=== PATIENT | male | born 1970 ===

== ENCOUNTER 2019-12-11 18:21 | Emergency (ER) | payer MEDICAID ==
[~2019-12-11] VITALS: Ht 172.7 cm; Wt 72.6 kg
[2019-12-11 18:22] VITALS: BP 130/88
--- NOTE | 2019-12-11 18:31 | Emergency Room Report ---
History of Present Illness General Chief Complaint: Chest Pain Source: Patient Present Illness HPI Disclaimer: Please note that this report is being documented using DRAGON technology. This can lead to erroneous entry secondary to incorrect interpretation by the dictating instrument. HPI: This a 49 male presenting from [facility] [place] for evaluation of chest pain. The patient arrives by EMS. He states that 2 hours ago he smoked 3 or 4 cigarettes after which she developed palpitations and then a generalized discomfort at the base of his neck and upper chest. Does not radiate. Denies shortness of breath, diaphoresis, syncope, near syncope, back or shoulder pain. Reports that he has had similar experiences after smoking cigarettes but not as severe. He is trying to quit now and limiting his cigarette use. Denies drug or alcohol use. Denies prior history of cardiac disease, coagulopathies. He has a history of asthma but denies any wheezing, cough, sputum production. He tested negative for COVID-19 earlier today. PMH: Asthma, schizophrenia PSH: Reviewed Allergies: Denied Social Hx: Daily tobacco use, denies alcohol or drug abuse Allergies: Coded Allergies: No Known Allergies (Unverified , 12/11/19) COVID-19 Screening Contact w/high risk pt: No Recent Travel to affected area: No Experienced COVID-19 symptoms?: No COVID-19 Testing performed RESEARCH AND DEVELOPMENT RESEARCHER: Yes - 12/11/19 COVID-19 Screening: Negative COVID-19 COVID-19 Testing Source: PATCH SETTER Nursing Documentation-PMH Past Medical History: No History, Except For History Of Psychiatric Problem: Yes - Schizophrenia. Review of Systems All Other Systems: negative except mentioned in HPI Physical Exam Vital Signs Date Time Temp Pulse Resp B/P (MAP) Pulse Ox O2 Delivery O2 Flow Rate FiO2 12/11/19 18:16 98.2 93 16 155/94 (114) 98 Room Air General: Awake and alert, no acute distress, mildly anxious appearing HEENT: NC/AT. EOMI. Cardiovascular: RRR. S1 and S2 normal. No murmur appreciated Resp: Normal work of breathing. No cough, wheezing or crackles appreciated Skin: Intact. No abrasions, laceration or rash over the exposed skin MSK: Normal tone and bulk. Moving all extremities. No obvious deformity. Neuro: Awake and alert. Mentating appropriately. Medical Decision Making Diagnostic Impression: Primary Impression: Chest pain ER Course This a 49-year-old male presenting for evaluation of chest pain after smoking cigarettes 2 hours ago. Differential includes but is not limited to anxiety, arrhythmia, esophageal spasm, musculoskeletal chest pain, palpitations, ACS, PE , GERD to name a few. He is well-appearing arrives stable vital signs. EKG shows sinus rhythm without ischemic changes. Chest x-ray unremarkable. Labs are returned largely within normal limits with negative d-dimer and negative troponin. Patient is chest pain-free and resting comfortably. Urinalysis showed 1+ leukocyte esterase, 5-10 white cells but few bacteria with moderate epithelial cells. May be contaminated sample given the epithelial cells and few bacteria. The patient denies any symptoms of a UTI at this time. Will await culture results. Patient be discharged to follow-up on an outpatient basis. Counseled him on smoking sensation. Discussed return precautions. He understands and agrees to treatment plan. Laboratory Tests Test 12/11/19 18:17 12/11/19 18:37 White Blood Count 9.2 K/UL (4.8-10.8) Red Blood Count 5.03 M/UL (4.70-6.10) Hemoglobin 14.9 G/DL (14.2-18.0) Hematocrit 46.3 % (42.0-52.0) Mean Corpuscular Volume 92 FL (80-99) Mean Corpuscular Hemoglobin 29.7 PG (27.0-31.0) Mean Corpuscular Hemoglobin Concent 32.3 G/DL (32.0-36.0) Red Cell Distribution Width 13.3 % (11.6-14.8) Platelet Count 351 K/UL (150-450) Mean Platelet Volume 8.6 FL (6.5-10.1) Neutrophils (%) (Auto) 64.5 % (45.0-75.0) Lymphocytes (%) (Auto) 26.5 % (20.0-45.0) Monocytes (%) (Auto) 7.4 % (1.0-10.0) Eosinophils (%) (Auto) 0.7 % (0.0-3.0) Basophils (%) (Auto) 1.0 % (0.0-2.0) Prothrombin Time 10.2 SEC (9.30-11.50) Prothrombin Time INR 0.9 (0.9-1.1) Activated Partial Thromboplast Time 31 SEC (23-33) D-Dimer 0.33 mg/L FEU (0.00-0.49) Sodium Level 140 MMOL/L (136-145) Potassium Level 3.8 MMOL/L (3.5-5.1) Chloride Level 103 MMOL/L (98-107) Carbon Dioxide Level 30 MMOL/L (21-32) Anion Gap 7 mmol/L (5-15) Blood Urea Nitrogen 14 mg/dL (7-18) Creatinine 1.0 MG/DL (0.55-1.30) Estimated Glomerular Filtration Rate > 60 mL/min (>60) Glucose Level 118 MG/DL (74-106) H Calcium Level 9.0 MG/DL (8.5-10.1) Total Bilirubin 0.2 MG/DL (0.2-1.0) Aspartate Amino Transferase (AST) 19 U/L (15-37) Alanine Aminotransferase (ALT) 40 U/L (12-78) Alkaline Phosphatase 74 U/L (46-116) Troponin I 0.007 ng/mL (0.000-0.056) Pro-B-Type Natriuretic Peptide 31 pg/mL (0-125) Total Protein 7.6 G/DL (6.4-8.2) Albumin 3.6 G/DL (3.4-5.0) Globulin 4.0 g/dL Albumin/Globulin Ratio 0.9 (1.0-2.7) L Urine Color Pale yellow Urine Appearance Clear Urine pH 6.5 (4.5-8.0) Urine Specific [place] 1.010 (1.005-1.035) Urine Protein Negative (NEGATIVE) Urine Glucose (UA) Negative (NEGATIVE) Urine Ketones Negative (NEGATIVE) Urine Blood Negative (NEGATIVE) Urine Nitrite Negative (NEGATIVE) Urine Bilirubin Negative (NEGATIVE) Urine Urobilinogen Normal MG/DL (0.0-1.0) Urine Leukocyte Esterase 1+ (NEGATIVE) H Urine RBC 0-2 /HPF (0 - 0) H Urine WBC 5-10 /HPF (0 - 0) H Urine Squamous Epithelial Cells Moderate /LPF (NONE/OCC) H Urine Bacteria Few /HPF (NONE) Urine Mucus Few /LPF (NONE/OCC) H Urine Opiates Screen Negative (NEGATIVE) Urine Barbiturates Screen Negative (NEGATIVE) Phencyclidine (PCP) Screen Negative (NEGATIVE) Urine Amphetamines Screen Negative (NEGATIVE) Urine Benzodiazepines Screen Negative (NEGATIVE) Urine Cocaine Screen Negative (NEGATIVE) Urine Marijuana (THC) Screen Negative (NEGATIVE) EKG Diagnostic Results EKG Time: 18:13 Rate: normal Rhythm: NSR ST Segments: no acute changes Other Impression Borderline tachycardia, sinus rhythm, normal axis, no ST segment changes. Rhythm Strip Diag. Results Rhythm Strip Time: 18:13 EP Interpretation: yes Rate: 97 Rhythm: NSR, no PVC's, no ectopy Last Vital Signs Date Time Temp Pulse Resp B/P (MAP) Pulse Ox O2 Delivery O2 Flow Rate FiO2 12/11/19 18:16 98.2 93 16 155/94 (114) 98 Room Air Disposition: HOME, SELF-CARE Condition: Stable Robert Sharma MD Dec 11, 2019 18:31
[2019-12-11 18:56] LABS: ANION GAP 7 mmol/L (5-15); BLOOD UREA NITROGEN 14 mg/dL (7-18); CARBON DIOXIDE 30 MMOL/L (21-32); CHLORIDE 103 MMOL/L (98-107); POTASSIUM 3.8 MMOL/L (3.5-5.1); SODIUM 140 MMOL/L (136-145)
[2019-12-11 18:58] LABS: EOSINOPHILS % (AUTO) 0.7 % (0.0-3.0); HEMATOCRIT 46.3 % (42.0-52.0); HEMOGLOBIN 14.9 G/DL (14.2-18.0); LYMPHOCYTES % (AUTO) 26.5 % (20.0-45.0); MEAN CORPUSCULAR VOLUME 92 FL (80-99); MONOCYTES % (AUTO) 7.4 % (1.0-10.0); NEUTROPHILS % (AUTO) 64.5 % (45.0-75.0); PLATELET COUNT 351 K/UL (150-450); RED BLOOD COUNT 5.03 M/UL (4.70-6.10); RED CELL DISTRIBUTION WIDTH 13.3 % (11.6-14.8); WHITE BLOOD COUNT 9.2 K/UL (4.8-10.8)
[2019-12-11 18:59] LABS: INR 0.9 (0.9-1.1)
[2019-12-11 19:03] LABS: APPEARANCE,URINE CLEAR; BILIRUBIN, URINE NEGATIVE (NEGATIVE); COLOR,URINE PALE YELLOW; GLUCOSE, URINE (UA) NEGATIVE (NEGATIVE); KETONES,URINE NEGATIVE (NEGATIVE); LEUKOCYTE ESTERASE ,URINE 1+ (NEGATIVE); NITRITE,URINE NEGATIVE (NEGATIVE); PH,URINE 6.5 (4.5-8.0); PROTEIN,URINE NEGATIVE (NEGATIVE); UROBILINOGEN,URINE NORMAL MG/DL (0.0-1.0)
[2019-12-11 19:15] LABS: ALANINE AMINOTRANSFERASE 40 U/L (12-78); ALBUMIN 3.6 G/DL (3.4-5.0); ALBUMIN/GLOBULIN RATIO 0.9 (1.0-2.7); ALKALINE PHOSPHATASE 74 U/L (46-116); ASPARTATE AMINO TRANSFERASE 19 U/L (15-37); BILIRUBIN,TOTAL 0.2 MG/DL (0.2-1.0)
[2019-12-11 20:10] VITALS: BP 130/88
--- NOTE | 2019-12-12 12:36 | Diagnostic Imaging Report ---
Indication: Chest pain Technique: XRAY Chest 1v Comparison: None Findings: Heart size and mediastinal contours are within normal limits for AP technique. There is no focal airspace consolidation, pneumothorax or pleural effusion. Osseous structures demonstrate no acute abnormality. Impression: No radiographic evidence of acute cardiopulmonary disease.
== END 2019-12-11 20:10 | disposition home or self-care (01) ==
LOC: EDBD 18:21 → EMR 18:45
DX: R07.9 Chest pain, unspecified (principal); J45.909 Unspecified asthma, uncomplicated; F17.200 Nicotine dependence, unspecified, uncomplicated
CPT/HCPCS: 36415; 71045; 80053; 80307; 81003; 83880; 84484; 85025; 85379; 85610; 85730; 93005; 96360; J7030; Z7502; 99284